=== PATIENT | female | born 1965 | race Caucasian/White ===

== ENCOUNTER → 2021-11-24 | Outpatient (CLI) | payer MEDICAID ==
[~2021-11-24] MED LIST: BUSPAR10 MG PO; CELEXA40 MG PO; DESYREL DIVIDO150 M1 PO; ESTRACE0.5 MG PO; KLONOPIN 1MG1 MG PO; KLOR-CON M2020 MEQ PO; NORCO 325 MG-7.1 TAB PO; PRILOSEC 20MG20 MG PO; SEROQUEL XR200 MG PO; VESICARE 5MG5 MG PO
== END ==
LOC: MHCPAIN 13:01
DX: M47.816 Spondylosis without myelopathy or radiculopathy, lumbar region (principal); M54.16 Radiculopathy, lumbar region; G89.29 Other chronic pain
CPT/HCPCS: G0463

== ENCOUNTER → 2022-01-28 | Outpatient (CLI) | payer MEDICAID | LOC: MHCPAIN 13:44 | DX: M47.817 Spondylosis without myelopathy or radiculopathy, lumbosacral region (principal); M53.3 Sacrococcygeal disorders, not elsewhere classified; M54.16 Radiculopathy, lumbar region | CPT/HCPCS: G0463; J1100; Q9967 ==

== ENCOUNTER → 2022-02-17 | Outpatient (CLI) | payer MEDICAID | LOC: MHCPAIN 13:30 | DX: M47.817 Spondylosis without myelopathy or radiculopathy, lumbosacral region (principal); M53.3 Sacrococcygeal disorders, not elsewhere classified; M54.50 Low back pain, unspecified | CPT/HCPCS: G0463 ==